=== PATIENT | female | born 2000 | race Two or more races ===

== ENCOUNTER 2023-12-31 18:28 | Emergency (ER) | payer SELFPAY ==
[~2023-12-31] VITALS: Ht 175.3 cm; Wt 85.0 kg
[2023-12-31 18:40] VITALS: TEMP 98.3
[2023-12-31 18:47] VITALS: BP 137/90; O2SAT 98
[2023-12-31 19:54] VITALS: PULSE 89; RESP 18
[2023-12-31] MEDS ORDERED: AUG875T PO (19:55)
== END 2023-12-31 20:02 | disposition home or self-care (01) ==
LOC: ER 18:28
DX: B34.9 Viral infection, unspecified (principal); J32.9 Chronic sinusitis, unspecified
CPT/HCPCS: 71046